=== PATIENT | male | born 1945 | race Caucasian/White ===

== ENCOUNTER 2019-04-26 23:24 | Inpatient (IN) | payer OTHER ==
[~2019-04-26] VITALS: Ht 167.6 cm; Wt 87.1 kg
--- NOTE | 2019-04-26 23:41 | NUR ---
PT OLGA FROM [facility] FOR ABD PAIN. PER MEDIC PT HAD HERNIA REPAIR X2 DAYS AGO AT OUR FACILITY. COLOSTOMY BAG SEEN AT [facility]. 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 PT CONNECTED TO FULL CM.
--- NOTE | 2019-04-27 | NUR ---
PER DAUGHTER HE HAD TO GET DIALYSIS "AFTER THE MISTAKE THEY MADE AFTER HIS PROCEDURE BUT HE NEVER NEEDED DIALYSIS BEFORE THAT" KELLIE PORT-A-CATH NOTED
--- NOTE | 2019-04-27 | NUR ---
PER DAUGHTER HE HAD TO GET DIALYSIS RUE
--- NOTE | 2019-04-27 | NUR ---
PER DAUGHTER PT HAD UMBILICAL HERNIA PROCEDURE DONE IN [place] "BUT THE DR ADMITTED HE MADE A MISTAKE AND LEFT ONE OF THE HOLES OPEN AND HAD TO BE IN AN INDUCED COMA AFTER TAKING OUT ALL OF HIS ORGANS AND THAT IS WHY HE HAS THAT BAG" WITH REFERENCE TO THE OSTOMY BAG PER DAUGHTER PT WAS AT [facility] FOR REHABILITATION BUT "STILL COMPLAINING OF ABDOMINAL PAIN AT THE SITE" PT HIMSELF DENIES PAIN AT THIS TIME PER PT "HURTS OFF AND ON MAINLY WHEN I GO TO THE BATHROOM" PER PT HE NEEDS ASSITANCE WITH URINAL PT AAOX4 IN NAD OSTOMY BAG NOTED TO MLQ ABOVE UMBILICAL WITH YELLOW DRAINAGE IN BAG AND SOILED DRESSING WITH YELLOW DRAINAGE UNDER SITE PER DAUGHTER "HOLES FROM PROCEDURE AFTER THEY MESSED UP THE HERNIA SURGERY" PT AWAITING MSE
--- NOTE | 2019-04-27 | NUR ---
MULTIPLE WOUNDS NOTED TO MIDLINE ABD MULTIPLE WOUNDS LEAKING WITH YELLOW DRAINAGE NOTED OSTOMY BAG ALSO LEAKING YELLOW DRAINAGE WITH REDNESS NOTED TO SURROUNDING SKIN POSSIBLE SURGICAL INCISION SITES NOTED TO BOTH LLQ AND RLQ HOWEVER NO S/S OF INFECTION TO THESE TWO SITES PICTURES TAKEN OF WOUND SITES AND PLACED IN PT CHART
--- NOTE | 2019-04-27 | NUR ---
PER DAUGHTER PT HAD UMBILICAL HERNIA PROCEDURE DONE IN [place] "BUT THE DR ADMITTED HE MADE A MISTAKE AND LEFT ONE OF THE HOLES OPEN AND HAD TO BE IN AN INDUCED COMA AFTER TAKING OUT ALL OF HIS ORGANS AND THAT IS WHY HE HAS THAT BAG" WITH REFERENCE TO THE COLOSTOMY BAG PER DAUGHTER PT WAS A [place] FROM REHABILITATION BUT "STILL COMPLAINING OF ABD PAIN AT THE SITE PT HIMSELF DENIES PAIN AT THE TIME PER PT "HURTS OFF AND ON MAINLY WHEN I GO TO THE BATHROOM PT AAOX4 IN NAD COLOSTOMY BAG NOTED TO MLQ WITH YELLOW DRAINAGE [address] NEAR BAG WITH YELLOW DRAINAGE PER DAUGHTER "HOLES FROM PROCEDURE AFTER THEY MESSED UP THE HERNIA SURGERY" PT AWAITING MSE
--- NOTE | 2019-04-27 00:01 | NUR ---
PER DAUGHTER HE HAD TO GET DIALYSIS "AFTER THE MISTAKE THEY MADE AFTER HIS PROCEDURE BUT HE NEVER NEEDED DIALYSIS BEFORE THAT" PT AND DAUGHTER UNSURE OF WHEN HIS LAST DIALYSIS TX WAS RUE PICC LINE NOTED PER [place] PAPERWORK GIVEN TO US BY HALIE USED FOR DIALYSIS D/T BRIGITTE NEPHROTOXICITY FROM IV CONTRAST S/P SMALL BOWEL PERFORATION FOLLOWING UMBILICAL HERNIA PROCEDURE
--- NOTE | 2019-04-27 00:01 | NUR ---
PER DAUGHTER HE HAD TO GET DIALYSIS "AFTER THE MISTAKE THEY MADE AFTER HIS PROCEDURE BUT HE NEVER NEEDED DIALYSIS BEFORE THAT" PT AND DAUGHTER UNSURE OF WHEN HIS LAST DIALYSIS TX WAS PER [place] PAPERWORK GIVEN TO US BY HALIE PER PAPERWORK PT HAD HX SEPSIS, BRIGITTE, AND NEPHROTOXICITY FROM IV CONTRAST S/P SMALL BOWEL PERFORATION FOLLOWING UMBILICAL HERNIA PROCEDURE
--- NOTE | 2019-04-27 00:10 | NUR ---
PT DAUGHTER REQUESTING WATER FOR PT SHE WAS INFORMED THAT THE DOCTOR WANTS TO KEEP HIM NPO UNTIL HE PERFORMS HIS MSE
--- NOTE | 2019-04-27 00:15 | NUR ---
PT DAUGHTER REQUESTING WATER FOR PT AGAIN PT DAUGHTER REMINDED OF MD DURON'S VERBAL ORDER TO KEEP NPO PT DAUGHTER SMELLS OF ETOH AND RED FLUSHED SKIN NOTED PT REQUESTED TO SPEAK TO MD DURON
--- NOTE | 2019-04-27 00:50 | NUR ---
PT DAUGHTER REQUESTING WATER FOR HER FATHER AGAIN PT REMINDED OF HIS NPO STATUS PER MD DURON VERBAL ORDER PT DAUGHTER STS "I DON'T CARE I RECOMMEND THAT HE GETS WATER HE IS FINE AND HAS BEEN EATING FINE JUST GIVE ME WATER I HAVE BEEN WAITING HERE FOR A LONG TIME" PT INFORMED MD DURON IS WITH A CRITICAL PT AND ASKED FOR HER TO PLEASE UNDERSTAND AND PLEASE BE PATIENT WITH US I WENT TO INFORM MD DURON AND PT DAUGHTER FOLLOWED BEHING ME AND WAS SEEN YELLING AT NURSE STATION TO HAVE THE DOCTOR "COME SEE MY DAD I WANT HIM TO HAVE WATER HE IS FINE"
--- NOTE | 2019-04-27 00:52 | NUR ---
PER MD DURON VERBAL ORDERS OKAY TO GIVE PT ICE CHIPS
--- NOTE | 2019-04-27 00:52 | NUR ---
MD DURON AT BEDSIDE PERFORMING MSE
--- NOTE | 2019-04-27 00:59 | NUR ---
PT IN POSITION OF COMFORT DAUGHTER AT BEDSIDE RESPS E/U
--- NOTE | 2019-04-27 01:09 | NUR ---
LAB AT BEDSIDE
--- NOTE | 2019-04-27 01:10 | NUR ---
URINAL LEFT AT BEDSIDE WITH DAUGHTER
--- NOTE | 2019-04-27 01:10 | NUR ---
PT MADE AWARE TO PROVIDE URINE SPECIMEN CROW CALL LIGHT WITHIN REACH INSTRUCTED TO CALL IF ANY ASSISTANCE NEEDED
[2019-04-27 01:25] LABS: BASOPHIL % 0.4 % (0-2); PLATELET COUNT 330 x10^3mcL (130-400)
[2019-04-27 01:29] LABS: RED CELL DISTRIBUTION WIDTH 15.4 % (11.5-14.5)
[2019-04-27 01:42] LABS: CARBON DIOXIDE 28.7 mmol/L (21-32); CHLORIDE SERUM 103 mmol/L (98-107); SODIUM SERUM 138 mmol/L (136-145); TOTAL PROTEIN, SERUM 7.5 g/dL (6.4-8.2)
[2019-04-27 01:43] LABS: ALBUMIN 2.4 g/dL (3.4-5.0); ALKALINE PHOSPHATASE 92 U/L (46-116); ALT/SGPT 37 U/L (16-63); AST/SGOT 21 U/L (15-37); BILIRUBIN TOTAL 0.4 mg/dL (0.20-1.00); LIPASE 601 IU/L (73-393)
[2019-04-27 01:44] LABS: GLUCOSE SERUM 54 mg/dL (74-106)
--- NOTE | 2019-04-27 01:59 | NUR ---
PT IN POSITION OF COMFORT RESPS E/U DAUGHTER AT BEDSIDE CALL LIGHT WITHIN REACH
--- NOTE | 2019-04-27 02:30 | NUR ---
PT FAMILY APPROACHED NURSES STATION ASKING FOR ASSISTANCE WITH PT TO USE RESTROOM. UPON ENTERING ROOM, INFOMRED PT THAT I WOULD PROVIDE HIM WITH A URINAL, PT NODDED HIS HEAD. WHEN I RETRIEVED THE URINAL AND I WAS HANDING URINAL TO PT, PT DAUGHTER STATED "YOU DIDN'T EVEN ASK HIM IF HE NEEDED TO PEE OR POO. HOW CAN YOU KNOW WHAT HE NEEDED, YOU JUST OFFERED HIM THE URINAL AND YOU DIDN'T ASK HIM." THEN SHE PROCEEDED TO ASK PT IN [place] IF HE NEEDED TO URINATE OR HAVE A BM, PT REPLIED "NO SE'" IN [place]. PT DAUGHTER ASKED PT AGAIN AND PT AGAIN REPLIED "NO SE'" (i DON'T KNOW) IN [place]. PT THEN REACHED HIS HAND OUT FOR URINAL TO BE PLACED ON BEDRAIL. PLACED URINAL ON BEDRAIL AND INFORMED PT AND FAMILY TO NOTIFY STAFF IF PT NEEDED TO HAVE BM OR NEEDED ASSISTANCE TO URINATE. PT GAVE UNDRESTANDING AND NODDED HIS HEAD.
--- NOTE | 2019-04-27 02:50 | NUR ---
PT DAUGHTER STS SHE IS GOING HOME TO SLEEP AND WANTS TO BE UPDATED ON PT STATUS IF D/C OR ADMITTED PT AGREED TO ALLOW ME TO CALL HER WITH UPDATE HOWEVER BOTH PT AND DAUGHTER INFORMED NO RESULTS MAY BE GIVEN OVER THE PHONE PT DAUGHTER LANCE VILLATORO LEFT CONTACT NUMBER [phone] I ALSO PROVIDED HER WITH [facility] ED NUMBER AND MY NAME
--- NOTE | 2019-04-27 02:53 | NUR ---
RESPS E/U URINAL AT BEDSIDE CALL LIGHT WITHIN REACH DEXTROSE INFUSING IN RUE WILL CONTINUE TO MONITOR
[2019-04-27 02:58] LABS: microscopic required? YES; urine erythrocyte NEGATIVE (NEGATIVE)
[2019-04-27 03:26] LABS: MAGNESIUM 1.8 mg/dL (1.8-2.4); PHOSPHOROUS 3.8 mg/dL (2.5-4.9)
[2019-04-27 03:27] LABS: CHOLESTEROL/HDL RATIO 2.6
--- NOTE | 2019-04-27 03:30 | NUR ---
PT IN POSITION OF COMFORT RESPS E/U CALL LIGHT WITHIN REACH WILL CONTINUE TO MONITOR
[2019-04-27] MEDS ORDERED: TESSALON PERLE100 MG PO (03:58)
[2019-04-27] MEDS ORDERED: DULCOLAX10 M1 RC (03:59)
--- NOTE | 2019-04-27 04:00 | NUR ---
PT OSTOMY BAG CHANGED AND SITE WITH SURROUNDING WOUNDS CLEANED WITH STERILE WATER AND PAT DRY WITH STERILE GUAZE PER MD DURON VERBAL ORDERS
[2019-04-27] MEDS ORDERED: METFORMIN HYDR500 M1 PO (04:01)
[2019-04-27] MEDS ORDERED: GLIPIZIDE5 M2 PO (04:01)
[2019-04-27] MEDS ORDERED: MILK OF MA400 MG/52 PO (04:01)
[2019-04-27] MEDS ORDERED: TYL650S PO (04:03)
[2019-04-27 04:04] LABS: FREE T4 0.82 ng/dL (0.76-1.46); FREE THYROXINE INDEX 2.2 ug/dL (1.4-4.5)
[2019-04-27 04:14] LABS: T3 TOTAL 0.69 ng/mL
--- NOTE | 2019-04-27 05:05 | NUR ---
MD DURON MADE AWARE OF PT BG LEVEL OF 64 PER MD DURON INCREASE DEXTROSE 5% IN 0.9% NS TO 100 ML/HR
--- NOTE | 2019-04-27 05:06 | NUR ---
MD DURON MADE AWARE OF PT BG LEVEL OF 64 PER MD DURON INCREASE DEXTROSE 5% IN 0.9% NS TO 120 ML/HR
--- NOTE | 2019-04-27 05:29 | NUR ---
PT IN POSITION OF COMFORT RESPS E/U WARM BLANKET PROVIDED PT AFEBRILE AT THIS TIME CALL LIGHT WITHIN REACH INSTRUCTED TO CALL IF ANY ASSISTANCE NEEDED
--- NOTE | 2019-04-27 06:25 | NUR ---
PER MD VERBAL ORDERS GIVE PT ORANGE JUICE AND SANDWICH ORANGE JUICE AND TUNA SANDIWCH GIVEN TO PT
--- NOTE | 2019-04-27 06:39 | NUR ---
PT FINISHED SANDWICH AND JUICE PT IN POSITION OF COMFORT SANDOSTATIN 0.05 MG IVP ADMIN WITH START TIME 632 AND END TIME 637 VIA RUE PICC PRN DEXTROSE 10% IN 250ML NS NOW INFUSING VSS RESPS E/U CALL LIGHT WITHIN REACH WILL CONTINUE TO MONITOR
--- NOTE | 2019-04-27 07:28 | NUR ---
PER MD DURON VERBAL ORDERS STOP INFUSION OF BOTH DEXTROSE 10% 250 ML/HR IV AND DEXTROSE 5% IN 0.9% NS AT 120 ML/HR IV
--- NOTE | 2019-04-27 07:34 | NUR ---
PT IN POSITION OF COMFORT RESPS E/U VSS
[2019-04-27 08:00] VITALS: Ht 167.6 cm; Wt 87.1 kg
--- NOTE | 2019-04-27 08:13 | NUR ---
RECEIVING THE PATIENT TRANSFERRED FROM ER DEPT; PATIENT AWAKE AND ORIENTED TO PERSON, PLACE AND DATE OF . PATIENT DENIES ANY PAIN, SHORTNESS OF BREATH OR NAUSEA/VOMITING AT THIS TIME. PATIENT IS ASSISTED TO POSITION COMFORTLY IN BED; FULL TELE MONITOR APPLIED TO THE PATIENT, WHICH READS SINUS TACHYCARDIA. VS CHECKED. BS. CHECKED VIA FINGER STICK IS 138. IV SITE NOTED TO RIGHT HAND; 1 LUMEN PICC LINE NOTED TO RIGHT UPPER ARM. NEW COLOSTOMY BAG AT COLOSTOMY SITE TO LOWER ABDOMEN. DRESSING NOTED TO 3 SITES TO UPPER, RIGHT AND LEFT ABDOMEN. CALL LIGHT WITHIN REACH. SIDE RAILS UP X 3. BED IS AT LOWEST POSITION. ALARM IS ON.
--- NOTE | 2019-04-27 08:14 | NUR ---
PT DAUGHTER LANCE CONTACTED AND INFORMED OF PT ADMIT TO ICU 4
[2019-04-27 09:06] VITALS: BP 103/70
--- NOTE | 2019-04-27 09:37 | NUR ---
PATIENT ROUNDS WITH DR. DAVISON AND RESIDENTS. CHARGE NURSE AND PRIMARY NURSE AT BEDSIDE. UPDATES PROVIDED AND POC DISCUSSED.
--- NOTE | 2019-04-27 09:39 | NUR ---
DR. HOLCOMB MADE AWARE ABDOMINAL SURGICAL INCISIONS APPEAR RED AND PICTURES ARE IN CHART. RECOMMENDED TO CULTURE SURGICAL INCISIONS AND SENT TO LAB. NO NEW ORDER AT THIS TIME. REGINALD MILLER MADE AWARE.
[2019-04-27 11:55] VITALS: BP 128/77
[2019-04-27 15:00] VITALS: BP 127/66
--- NOTE | 2019-04-27 17:57 | NUR ---
REPORT GIVEN TO REGINALD MORENO ON [facility] UNIT. PATIENT WILL BE TRANSFERRED TO ROOM 242B, [facility] UNIT.
--- NOTE | 2019-04-27 18:14 | NUR ---
PATIENT IS TRANSFERRED UP TO ROOM 242B, [facility] [[email or web address]] UNIT. LUIS CARLOS, THE DAUGHTER IS CALLING TO ICU AND NOTIFIED OF THE PATIENT'S TRANSFER.
--- NOTE | 2019-04-27 18:30 | NUR ---
RECEIVED PT TRANSFER FROM ICU. PT IS MOROCCAN /POLISH SPEAKING. PT A/O X4. PT BREATHING ON RA, EVEN, UNLABORED. PT'S VS: BP 144/55 (84), HR 109, O2 SAT 93% ON RA, TEMP 97.2. PT HAD INCISIONS ON ABD FROM LAST MOTH. THERE ARE THREE HOLES COVERED WITH COLOSTOMY BAG, LIQUID STOOL. NO STOMA PRESENT. CHANGED COLOSTOMY BAG, AND DRESSING. MED LINE ON RUE, IV D5NS INFUSING AT 50ML/HR. IV ON RH, SALINE LOCK. WILL ENDORSE PT CARE TO COMING NURSE.
--- NOTE | 2019-04-27 19:30 | NUR ---
PT IS A/O x4. ON TELE #25, ST, HR 100. DENIES ANY CHEST PAIN OR PRESSURE. PULSES ARE PRESENT. NO EDEMA NOTED. LUNGS CLEAR IN ALL FEILDS. ON RA, DENIES ANY SOB. EQUAL CHEST RISE AND FALL. NO SIGN OF RESP DISTRESS. BOWEL SOUNDS PRESENT x4. LARGE COLOSTOMY BAG ON MID ABD IS CLEAN AND INTACT. 3 DRESSING ON RIGHT, UPPER, AND LEFT ABD ARE CLEAN AND INTACT. WOUNDS ON R AND L ARE CLOSED AND INTACT. WOUND ON THE UPPER IS OPEN WITH NO ACTIVE DRAINAGE NOTED. PICC LINE ON ELIZABETH IS CLEAN AND INTACT. IV ON RH IS CLEAN AND INTACT. BED IS AT LOWEST SETTING. CALL LIGHT WITHIN REACH. WILL CONTINUE TO MONITOR.
--- NOTE | 2019-04-27 19:42 | NUR ---
ENDORSED PT'S CARE TO COMING NURSE. QUESTIONS AND CONCERNS ANSWERED. PT REQUESTS MILK OF MAGNESIUM. MED GIVEN PER PRN ORDER.
[2019-04-27 20:50] VITALS: BP 125/73
--- NOTE | 2019-04-28 02:14 | NUR ---
PT IS RESTING IN BED. DENIES ANY DISTRESS AT THIS TIME. COLOSTOMY BAG CLEAN AND IN PLACE. PT HAD A WATERY BM, PT WAS CLEAN AND MADE COMFORTABLE. BED IS AT LOWEST SETTING. CALL LIGHT WITHIN REACH. WILL CONTINUE TO MONTIOR.
[2019-04-28 04:57] VITALS: BP 108/68
[2019-04-28 06:47] LABS: BASOPHIL % 0.4 % (0-2); PLATELET COUNT 348 x10^3mcL (130-400)
[2019-04-28 06:49] LABS: RED CELL DISTRIBUTION WIDTH 15.4 % (11.5-14.5)
--- NOTE | 2019-04-28 07:01 | NUR ---
PT IS RESTING IN BED. DENIES ANY PAIN OR COMPLAINTS AT THIS TIME. NO ACUTE EVENT OCCURED AT NIGHT. BED IS AT LOWEST SETTING. CALL LIGHT WITHIN REACH. WILL ENDORSE TO AM NURSE.
--- NOTE | 2019-04-28 07:10 | NUR ---
RECIEVED PT RESTING IN BED WTIH NO C/O PAIN, DISTRESS, OR SOB.PT A/O X4 WITH NO AGUILAR OR DIZZINESS. PT ON TELE#25. DENIES CP OR PRESSURE AT THIS TIME. LUNGS CTA ON RA. BOWEL SOUNDS ACTIVE X4, COLOSTOMY BAG INTACT AND DRAINING LIGHT BROWN STOOL. VOIDS IN URINAL AT TIMES INCONTINENT. 3 ABD BANDAGES CDI AROUND COLOSTOMY ON ABD. IN INTAV=CT AND PATENT TO RH 22 GUAGE AND PICC INTACT AND PATENT RUE. NO REDNESS OR INFLAMMATION NOTED. SAFETY PRECAUTIONS IN PLACE CALL LIGHT WITHIN REACH, WILL MONITOR.
[2019-04-28 07:20] LABS: CALCIUM 9.4 mg/dL (8.5-10.1); CHLORIDE SERUM 107 mmol/L (98-107); CREATININE SERUM 1.8 mg/dL (0.7-1.3); GLUCOSE SERUM 151 mg/dL (74-106); POTASSIUM SERUM 4.2 mmol/L (3.5-5.1); SODIUM SERUM 139 mmol/L (136-145)
[2019-04-28 09:25] VITALS: BP 115/67
--- NOTE | 2019-04-28 10:00 | NUR ---
PT STABLE AT THIS TIME WITH NO C/O PAIN, DISTRESS, OR SOB. COLOSTOMY BAG DRAINED AND CHANGED. ABD BANDAGES ALSO CHANGED. ALL CDI . PT TOLERATED WELL. SAFETY PRECAUTIONS IN PLACE, CALL LIGHT IN REACH, WILL MONITOR
--- NOTE | 2019-04-28 10:33 | NUR ---
PT C/O ABD DISCOMFORT, REQUESTING SOMETHING TO HELP HIM HAVE A BM. GIVEN MOM ORDERED PO. SEE EMAR. PRIMARY NURSE ABIDA MADE AWARE.
[2019-04-28 12:02] VITALS: BP 122/72
--- NOTE | 2019-04-28 14:26 | NUR ---
PT REPORT ABD PIN OF 05/20, MEDICATED WITH MORPHINE PER EMAR, WILL REASSESS
--- NOTE | 2019-04-28 14:35 | NUR ---
PT'S DAUGHTER REPORTING PT IS C/O ABD PAIN EVERY TIME PT HAS URGE TO HAVE BM. DAUGHTER REQUESTED TO SPEAK WITH ATTENDING REGARDING PT THAT HAS NOT BEEN ADDRESS AND PT HAS HAD SINCE PT WAS AT [facility]. MADE AWARE THAT PT HAD REFUSED ATTEMPTS TO MEDICATE IN AM. DIABETES EDUCATION COORDINATOR PAGED AND RETURN CALL. MADE AWARE OF FAMILY CONCERNS. REVIEWED CHART WITH DIABETES EDUCATION COORDINATOR. OBTAINED T.O. FOR ABD US COMPLETE FOR ABD PAIN. PT MADE AWARE HE WILL NEED TO BE NPO FOR NEXT 6-8. FAMILY AWARE STATED THEY WILL F/U TOMORROW WITH RESULTS.
--- NOTE | 2019-04-28 17:00 | NUR ---
PT PAIN DOWN TO 3/10 PER PT. COLOSTOMY BAG CHANGED DUE TO LEAKING. PT TOLERATED WELL. NO DISTRESS NOTED.
--- NOTE | 2019-04-28 18:41 | NUR ---
PT STABLE AT THIS TIME WITH NO C/O PAIN, DISTRESS, OR SOB. FAMILY AT BEDSIDE. IV AND PICC LINES INTRACT AND PATENT WITH NO REDNESS OR INFLAMMATION. TOLERATED ALL CARES WELL. VS WNL. ALL BANDAGES CDI. FAMILY AT BEDSIDE, SAGETY PRECAUTIONS IN PLACE, CALL LIGHT WITHIN REACH, WILL ENDORSE CARE TO NIGHT NURSE.
--- NOTE | 2019-04-28 19:40 | NUR ---
REC'D PT FROM DAY NURSE. FAMILY AT BEDSIDE. PT RESTING IN BED. AAOX4, SPEECH CLEAR, FOLLOWS COMMANDS. TELE 25. DENIES CP, DIZZINESS, OR PALPITATIONS. NO EDEMA NOTED. DENIES RESP DISTRESS OR SOB. BREATHING EVEN/UNLABORED ON RA. ABD ROUND/DISTENDED. REPORTS ABD CRAMPING, WILL MEDICATE. COLOSTOMY TO LOWER MID ABD DRAINING WATERY LIGHT BROWN STOOL- EMPTIED. PT JUST ATE DINNER. DRESSINGS TO ABD IN PLACE AND CDI. VOIDING FREELY. GEN WEAKNESS. PHYSICAL THERAPY. IV TO RH FLUSHED AND PATENT. PICC TO RUE PATENT AND INFUSING, SITES WNL. CALL LIGHT WITHIN REACH, BED AT LOWEST POSITION. WILL CONTINUE TO MONITOR. DR. GONZALEZ AWARE PT'S DAUGHTER WOULD LIKE TO SPEAK TO HIM REGARDING HIS CARE. DR. GONZALEZ STATED WILL COME INTO THE ROOM WHEN HE HAS FREE TIME.
--- NOTE | 2019-04-28 20:29 | NUR ---
PT C/O ABD PAIN. STATES HE FEELS LIKE "HE NEEDS TO POOP." 05/20 NORCO GIVEN PER ORDER.
--- NOTE | 2019-04-28 20:50 | NUR ---
DR. GONZALEZ WENT IN TO SPEAK TO THE PT'S FAMILY, BUT FAMILY HAD ALREADY LEFT. REC'D CALL FROM PT'S OTHER DAUGHTER, VANESSA VILLATORO, . STATED SHE WOULD LIKE TO SPEAK TO THE DOCTOR. DR. GONZALEZ MADE AWARE- CURRENTLY BUSY AND STATED WILL TRY TO CALL VANESSA BACK BY [phone]. CALLED VANESSA AND MADE AWARE, BUT SHE BECAME UPSET AND WOULD LIKE TO SPEAK TO THE ATTENDING PHYSICIAN, NOT THE RESIDENT, RIGHT NOW. INFORMED HER OF DAILY ROUNDS WITH THE ATTENDING PHYSICAN IN THE MORNING AND INFORMED OF VISITING HOURS. VANESSA STILL UPSET AND TRANSFERRED PHONE CALL TO ZIPPER MEASURER, JOESPH. CHARGE NURSES BRENT AND STANLEY ALSO AWARE.
[2019-04-28 21:06] VITALS: BP 114/66
--- NOTE | 2019-04-28 21:41 | NUR ---
PT STILL C/O ABD PAIN 05/20. MORPHINE GIVEN PER ORDER. WILL MONITOR FOR RELIEF.
--- NOTE | 2019-04-28 23:16 | NUR ---
DR. GONZALEZ AT THE NURSING STATION. STATED HE ALREADY TALKED TO VANESSA ON THE PHONE FOR 15 MIN. PT AWAKE AND RESTING IN BED. REPORTS SOME ABD PAIN BUT TOLERABLE AND DENIED PAIN MEDICATION. WILL CONTINUE TO MONITOR.
--- NOTE | 2019-04-29 00:45 | NUR ---
PT C/O MODERATE ABD PAIN. PT DOES NOT WANT MORPHINE OR NORCO. STATES MORPHINE MAKES HIM DROWSY. AGREEABLE TO TYLENOL. ONLY RECTAL TYLENOL AVAILABLE. SPOKE TO DR. MOFFETT AND REQUESTED PO TYLENOL WELL ALT FORM OF PAIN MED.
--- NOTE | 2019-04-29 02:56 | NUR ---
PT. C/O ABD. PAIN 7-06/20. PRN TORADOL IVP GIVEN. PRIMARY NURSE MADE AWARE.
--- NOTE | 2019-04-29 03:07 | NUR ---
PT RESTING IN BED WITH EYES CLOSED. NO S/SX OF PAIN NOTED. BREATHING EVEN/UNLABORED ON RA. CALL LIGHT WITHIN REACH, BED AT LOWEST POSITION. WILL CONTINUE TO MONITOR.
[2019-04-29 05:37] VITALS: BP 114/70
--- NOTE | 2019-04-29 06:14 | NUR ---
PT RESTING IN BED WITH EYES CLOSED. APPEARS TO BE SLEEPING. BREATHING EVEN/UNLABORED ON RA. NO S/SX OF PAIN NOTED. CALL LIGHT WITHIN REACH, BED AT LOWEST POSITION. WILL ENDORSE TO DAY NURSE.
[2019-04-29 06:40] LABS: BASOPHIL % 0.4 % (0-2); PLATELET COUNT 326 x10^3mcL (130-400)
[2019-04-29 06:46] LABS: RED CELL DISTRIBUTION WIDTH 15.2 % (11.5-14.5)
--- NOTE | 2019-04-29 07:05 | NUR ---
RECEIVED PATIENT FROM STAB SETTER AND DRILLER NURSE. PATIENT IS AWAKE, ALERT AND ORIENTED. TELE#25, SR, HR 86. ON ROOM AIR, BREATHING EVEN AND UNLABORED. PATIENT IS CLEAN AND DRY AT THIS TIME. FALL PREC IN PLACE. COLOSTOMY NOTED TO MID ABD, WITH LIGHT BROWN LIQUID OUTPUT. IV NOTED TO RIGHT HAND, IVF INFUSING WELL ORDERED, NO S/S ERYTHEMA AT SITE. PICC LINE NOTED TO ELIZABETH, NO S/S ERYTHEMA AT SITE. CALL LIGHT WITHIN EASY REACH. WILL CONTINUE PLAN OF CARE.
[2019-04-29 07:11] LABS: CALCIUM 8.9 mg/dL (8.5-10.1); CARBON DIOXIDE 28.8 mmol/L (21-32); CHLORIDE SERUM 104 mmol/L (98-107); CREATININE SERUM 1.8 mg/dL (0.7-1.3); GLUCOSE SERUM 111 mg/dL (74-106); POTASSIUM SERUM 5.3 mmol/L (3.5-5.1); SODIUM SERUM 138 mmol/L (136-145)
--- NOTE | 2019-04-29 07:38 | NUR ---
JANINE MOSS AWARE OF AM K 5.3. NO FURTHER ORDERS AT THIS TIME.
[2019-04-29 08:00] VITALS: BP 112/76
--- NOTE | 2019-04-29 09:31 | NUR ---
SPOKE WITH DAUGHTER, VANESSA REGARDING THE PATIENTS CARE. ANSWERED ALL QUESTIONS REGARDING CARE AND INSTRUCTED VANESSA TO KEEP HER PHONE ON HER AT ALL TIMES IN ORDER FOR JANINE MOSS TO REACH HER AND FURTHER DISCUSS HER FATHERS CARE. VANESSA VERBALIZED UNDERSTANDING AND WILL SHARE ANY NEW INFORMATION REGARDING PATIENTS CARE WITH ADDITIONAL CONCERNED FAMILY MEMBERS. PATIENT UPDATED ON CONVERSATION AT THIS TIME.
[2019-04-29 11:35] VITALS: BP 117/67
--- NOTE | 2019-04-29 12:01 | NUR ---
COLOSTOMY REINFORCED AT THIS TIME. LEAKING AT BOTTOM OF COLOSTOMY BAG. NO SIGNS OF LEAKING AFTER REINFORCEMENT AT THIS TIME. SKIN DRIED AND PREPPED PRIOR TO REINFORCEMENT.
[2019-04-29 16:38] VITALS: BP 112/61
--- NOTE | 2019-04-29 18:49 | NUR ---
PATIENT RESTING EASY IN NO ACUTE DISTRESS. PATIENT CARE ENDORSED TO SORTER UPHOLSTERY PARTS NURSE.
--- NOTE | 2019-04-29 20:00 | NUR ---
RECEIVED PT IN BED, RESTING QUIETLY. ALERT AND ORIENTED. ABLE TO VERBALIZE NEEDS.RESP. EVEN AND UNLABORED. LUNG SOUNDS CLEAR BILAT. ON ROOM AIR, NO ACUTE DISTRESS NOTED. AFEBRILE AND VITAL SIGNS STABLE. SR/ST ON THE MONITOR, DENIES CP OR ANY DISCOMFORT AT THIS TIME. IVF, NS AT 70ML/HR, INTACT AND INFUSING VIA ELIZABETH PICC LINE, SITE DRESSING DRY AND INTACT. ABD.DISTENDED, BUT SOFT. BS ACTIVE.NO N/V NOTED. COLOSTOMY TO MID ABD, DRAINING SEMI-LIQ. STOOL. DRESSINGS TO ABD.SURG, SITES DRY AND INTACT. HS CARE DONE. CALL LIGHT WITHIN REACH. WILL CONTINUE TO MONITOR.
[2019-04-29 20:24] VITALS: BP 122/67
--- NOTE | 2019-04-29 22:55 | NUR ---
TURNED AND REPOSITIONED Q2HRS AND PRN. INCONT. OF URINE, CLEANED AND KEPT COMFORTABLE. CALL LIGHT WITHIN REACH. WILL CONTINUE TO MONITOR.
--- NOTE | 2019-04-30 02:25 | NUR ---
AWAKE, COMPLAINED OF ABD. PAIN, 6/10, MEDICATED WITH TORADOL IV ORDERED. TURNED AND REPOSITIONED. IVF INATCT AND INFUSING , SITE CLEAR. CALL LIGHT WITHIN REACH. WILL CONTINUE TO MONITOR.
[2019-04-30 04:15] VITALS: BP 120/74
--- NOTE | 2019-04-30 06:05 | NUR ---
AFEBRILE AND VITAL SIGNS STABLE. RESP. EVEN AND UNLABORED. ON ROOM AIR, NO ACUTE DISTRESS NOTED. IVF INTACT AND INFUSING WELL, SITE CLEAR. COLOSTOMY BAG IN PLACE AND PATENT. TURNED AND REPOSITIONED FOR COMFORT. NO COMPLAINTS NOTED AT THIS TIME. INCONT. OF URINE, CLEANED AND KEPT COMFORTABLE.ALL NEEDS ATTENDED TO. CALL LIGHT WITHIN REACH. WILL CONTINUE TO MONITOR.
--- NOTE | 2019-04-30 07:05 | NUR ---
RECEIVED PATIENT FROM CASINO CHANGE ATTENDANT NURSE. PATIENT IS RESTING WITH BOTH EYES CLOSED, AROUSABLE. TELE#25, ST, HR 107. ON ROOM AIR, BREATHING EVEN AND UNLABORED. FALL PREC IN PLACE. COLSTOMY INTACT TO MID ABD. IV NOTED TO RIGHT HAND, SALINE LOCKED, NO S/S ERYTHEMA AT SITE. PICC LINE NOTED TO ELIZABETH, IVF INFUSING WELL, NO S/S ERYTHEMA AT SITE. CALL LIGHT WITHIN EASY REACH. WILL CONTINUE PLAN OF CARE.
[2019-04-30 07:22] LABS: BASOPHIL % 0.4 % (0-2)
[2019-04-30 07:32] LABS: CALCIUM 8.8 mg/dL (8.5-10.1); CARBON DIOXIDE 22.6 mmol/L (21-32); CHLORIDE SERUM 106 mmol/L (98-107); CREATININE SERUM 1.9 mg/dL (0.7-1.3); GLUCOSE SERUM 110 mg/dL (74-106); POTASSIUM SERUM 4.7 mmol/L (3.5-5.1); SODIUM SERUM 139 mmol/L (136-145)
[2019-04-30 07:51] LABS: PLATELET COUNT 347 x10^3mcL (130-400); RED CELL DISTRIBUTION WIDTH 14.4 % (11.5-14.5)
[2019-04-30 08:14] VITALS: BP 126/80
[2019-04-30] MEDS ORDERED: ROC1I IV (11:39)
[2019-04-30 11:53] VITALS: BP 123/80
--- NOTE | 2019-04-30 12:10 | NUR ---
PATIENT REFUSED ACCU CHECK AT THIS TIME. JANINE MILAN.
[2019-04-30 14:16] VITALS: BP 126/62
--- NOTE | 2019-04-30 14:55 | NUR ---
PATIENT REFUSING REMOVAL OF COLOSTOMY FOR WOUND PICTURES TO BE TAKEN. PATIENT STATES "IT IS WORKING GOOD RIGHT NOW PLEASE DO NOT REMOVE IT FOR A PICTURE."
--- NOTE | 2019-04-30 15:17 | NUR ---
PATIENT TRANSFERRED TO [facility] AT THIS TIME. AWAKE, ALERT AND ORIENTED. VSS. NO C/O PAIN OR DISCOMFORT. PICC LINE DRESSING TO ELIZABETH CHANGED AND INTACT, NO S/S ERYTHEMA AT SITE. ALL INSTRUCTIONS GIVEN TO PATIENT AND TRANSFER DOCUMENTS SIGNED. TELE MONITOR REMOVED AND RETURNED TO MASH PREPARATORY OPERATOR. ALL PERSONAL BELONGINGS TAKEN WITH PATIENT. PATIENT TRANSFERRED VIA [facility] BY [facility].
== END 2019-04-30 15:19 | DRG 637 ==
LOC: ED 23:24 → IC 04-27 03:01 → DU 04-27 03:01 → IC 04-27 08:14 → DU 04-27 18:20
PROVIDERS: Emergency Medicine; General Practice; ADMIT Internal Medicine
DX: E11.649 Type 2 diabetes mellitus with hypoglycemia without coma (principal); E43 Unspecified severe protein-calorie malnutrition; K59.00 Constipation, unspecified; T38.3X5A Adverse effect of insulin and oral hypoglycemic [antidiabetic] drugs, initial encounter; N17.0 Acute kidney failure with tubular necrosis; E02 Subclinical iodine-deficiency hypothyroidism; Z93.3 Colostomy status; Z68.26 Body mass index [BMI] 26.0-26.9, adult; Z79.84 Long term (current) use of oral hypoglycemic drugs; Y92.122 Bedroom in nursing home as the place of occurrence of the external cause
CPT/HCPCS: 82962; 84439; 97110-GP; 97116-GP; 97530-GP; A4371; B4164; G0378; J0696; J1815; J1885; J2270; J2354; J7030; J7042; Q0092